=== PATIENT | male | born 1965 | race Caucasian/White ===

== ENCOUNTER 2018-04-24 09:09 | Emergency (ER) | payer SELFPAY ==
--- NOTE | 2018-04-24 10:12 | ER Document Report ---
ED General - General Chief Complaint: High Blood Pressure Stated Complaint: BLOOD PRESSURE ISSUES Time Seen by Provider: 04/24/18 10:05 Notes: Chief complaint: Elevated blood pressure History of complain:( obtained from----patient) 52 years old male went to the methadone clinic they checked his blood pressure it was close to 200 therefore they were concerned and sent him over to the ED. He had a history of hypertension was taking 10 mg of lisinopril, which he has stopped taking it for the last several months. No reason. Currently denies any chest pain shortness of breath headache focal weakness numbness tingling sensation. Onset: Gradual Duration: Long-standing Severity: Mild to moderate Quality: Dull Context: Noncompliant Exacerbating factor and relieving factors: Excitement REVIEW OF SYSTEMS: CONSTITUTIONAL : Denies fever, chills, or sweats. Denies recent illness. EENT: Denies eye, ear, throat, or mouth pain or symptoms. Denies nasal or sinus congestion or discharge. Denies throat, tongue, or mouth swelling or difficulty swallowing. CARDIOVASCULAR: Denies chest pain. Denies palpitations or racing or irregular heart beat. Denies ankle edema. RESPIRATORY: Denies cough, cold, or chest congestion. Denies shortness of breath, difficulty breathing, or wheezing. GASTROINTESTINAL: Denies distention. Denies nausea, vomiting, or diarrhea. Denies blood in vomitus, stools, or per rectum. Denies black, tarry stools. Denies constipation. GENITOURINARY: Denies difficulty urinating, painful urination, burning, frequency, blood in urine, or discharge. FEMALE GENITOURINARY: Denies vaginal bleeding, heavy or abnormal periods, irregular periods. Denies vaginal discharge or odor. MUSCULOSKELETAL: Denies back or neck pain or stiffness. Denies joint pain or swelling. SKIN: Denies rash, lesions or sores. HEMATOLOGIC : Denies easy bruising or bleeding. LYMPHATIC: Denies swollen, enlarged glands. NEUROLOGICAL: Denies confusion or altered mental status. Denies passing out or loss of consciousness. Denies dizziness or lightheadedness. Denies headache. Denies weakness or paralysis or loss of use of either side. Denies problems with gait or speech. Denies sensory loss, numbness, or tingling. Denies seizures. PSYCHIATRIC: Denies anxiety or stress. Denies depression, suicidal ideation, or homicidal ideation. ALL OTHER SYSTEMS REVIEWED AND NEGATIVE. PHYSICAL EXAMINATION: GENERAL: Well-appearing, well-nourished and in no acute distress. HEAD: Atraumatic, normocephalic. EYES: Pupils equal round and reactive to light, extraocular movements intact, conjunctiva are normal. ENT: Nares patent, oropharynx clear without exudates. Moist mucous membranes. NECK: Normal range of motion, supple without lymphadenopathy LUNGS: Breath sounds clear to auscultation bilaterally and equal. No wheezes rales or rhonchi. HEART: Regular rate and rhythm without murmurs ABDOMEN: Soft, nontender, nondistended abdomen. No guarding, no rebound. No masses appreciated. Examination of genitals-deferred Musculoskeletal: Normal range of motion, no pitting or edema. No cyanosis. NEUROLOGICAL: Cranial nerves grossly intact. Normal speech, normal gait. Normal sensory, motor exams PSYCH: Normal mood, normal affect. SKIN: Warm, Dry, normal turgor, no rashes or lesions noted. Dictation was performed using [employer] voice recognition software TRAVEL OUTSIDE OF THE [place] IN LAST 30 DAYS: No - HPI Notes: Dictated - Related Data Allergies/Adverse Reactions: Beef Containing Products Allergy (Verified 10/04/16 18:59) Past Medical History - Social History Smoking Status: Current Every Day Smoker Cigarette use (# per day): No Chew tobacco use (# tins/day): No Frequency of alcohol use: Occasional Drug Abuse: Other Lives with: Family Family History: Reviewed & Not Pertinent - Past Medical History Cardiac Medical History: Reports: Hx Hypertension Skin Medical History: Reports Hx MRSA Infectious Medical History: Reports: Hx MRSA - Patient has had multiple surgeries did to the MRSA Past Surgical History: Reports: Hx Orthopedic Surgery - rt [place] back and neck , Other - fournieres gangrene, wound surgery - Immunizations Hx Diphtheria, Pertussis, Tetanus Vaccination: Yes Review of Systems - Review of Systems Notes: Dictated Physical Exam - Vital signs Vitals: Temp Pulse Resp BP Pulse Ox 98.7 F 62 18 176/94 H 94 04/24/18 09:13 04/24/18 09:13 04/24/18 09:13 04/24/18 09:13 04/24/18 09:13 - Notes Notes: Dictated Course - Re-evaluation Re-evalutation: 04/24/18 10:10 He was explained that it is important to take his medications, low-salt diet explained. 04/24/18 10:10 I asked to monitor his blood pressure regularly morning and evening at home - Vital Signs Vital signs: Temp Pulse Resp BP Pulse Ox 98.7 F 62 18 176/94 H 94 04/24/18 09:13 04/24/18 09:13 04/24/18 09:13 04/24/18 09:13 04/24/18 09:13 Discharge - Discharge Clinical Impression: Hypertension Qualifiers: Hypertension type: essential hypertension Qualified Code(s): I10 - Essential ( primary) hypertension Condition: Fair Disposition: HOME, SELF-CARE Instructions: High Blood Pressure ([facility]), High Blood Pressure, Requiring Treatment ([facility]) Prescriptions: Lisinopril/Hydrochlorothiazide [Lisinopril-Hctz 10-12.5 mg Tab] 1 each PO DAILY #30 tablet
[2018-04-24 10:14] VITALS: BP 162/90
== END 2018-04-24 10:14 | disposition home or self-care (01) ==
LOC: ER 09:09
DX: I10 Essential (primary) hypertension (principal); T46.4X6A Underdosing of angiotensin-converting-enzyme inhibitors, initial encounter; Z91.128 Patient's intentional underdosing of medication regimen for other reason; Z91.14 Patient's other noncompliance with medication regimen; F17.200 Nicotine dependence, unspecified, uncomplicated
CPT/HCPCS: 99283

== ENCOUNTER 2018-12-12 16:41 | Emergency (ER) | payer OTHER ==
[2018-12-12] MEDS ORDERED: PREDNISONE 20 MG TABLET PO ONE (18:25)
[2018-12-12] MEDS ORDERED: LIDOCAINE 5% (700 MG) TRANSDERMAL ADH..PATCH TP ONE (18:26)
--- NOTE | 2018-12-12 18:28 | ER Document Report ---
HPI - HPI Patient complains to provider of: Back pain Time Seen by Provider: 12/12/18 17:34 Onset/Duration: Persistent Quality of pain: Sharp Pain Level: 5 Context: Patient presents complaining of chronic back pain from a fall in 2010. Patient reports a flareup of his back pain that is causing pain to radiate into the left lower extremity. Patient denies any urinary retention or incontinence. Patient denies any new injury. Patient denies any fever. Patient denies any history of IV drug use. Associated Symptoms: Other - Low back pain Exacerbated by: Standing, Movement, Walking Relieved by: Denies Similar symptoms previously: Yes Recently seen / treated by doctor: No - ROS ROS below otherwise negative: Yes Systems Reviewed and Negative: Yes All other systems reviewed and negative - CONSTITUTIONAL Constitutional: DENIES: Fever, Chills - NEURO Neurology: DENIES: Weakness - GASTROINTESTINAL Gastrointestinal: DENIES: Nausea - MUSCULOSKELETAL Musculoskeletal: REPORTS: Extremity pain, Back Pain - DERM Skin Color: Normal Skin Problems: None Past Medical History - General Information source: Patient - Social History Smoking Status: Current Every Day Smoker Chew tobacco use (# tins/day): No Frequency of alcohol use: Social Drug Abuse: None Occupation: Construction Family History: Reviewed & Not Pertinent Patient has suicidal ideation: No Patient has homicidal ideation: No - Past Medical History Cardiac Medical History: Reports: Hx Hypertension Renal/ Medical History: Denies: Hx Peritoneal Dialysis Musculoskeletal Medical History: Reports Other - Chronic back pain Skin Medical History: Reports Hx MRSA Infectious Medical History: Reports: Hx Hepatitis, Hx MRSA - Patient has had multiple surgeries did to the MRSA Past Surgical History: Reports: Hx Orthopedic Surgery - rt shoulder back and neck, Other - fournieres gangrene, wound surgery - Immunizations Hx Diphtheria, Pertussis, Tetanus Vaccination: Yes Vertical Provider Document - CONSTITUTIONAL Agree With Documented VS: Yes Exam Limitations: No Limitations General Appearance: WD/WN, No Apparent Distress Notes: PHYSICAL EXAMINATION: GENERAL: Well-appearing, well-nourished and in no acute distress. HEAD: Atraumatic, normocephalic. EYES: sclera clear, anicteric, conjunctiva are normal. ENT: nares patent, Moist mucous membranes. NECK: Normal range of motion, supple no lymphadenopathy LUNGS: respirations unlabored HEART: Regular rate and rhythm without murmurs EXTREMITIES: Normal range of motion, no pitting or edema. No cyanosis. Gait normal, pt ambulates without difficulty BACK: Left lower lumbar paraspinal tenderness, lower lumbar midline tenderness, no deformities or step-offs. No CVA tenderness. NEUROLOGICAL: Cranial nerves grossly intact. Normal speech, normal gait. No saddle anesthesia. PSYCH: Normal mood, normal affect. SKIN: Warm, Dry, normal turgor, no rashes or lesions noted. - INFECTION CONTROL TRAVEL OUTSIDE OF THE [place] IN LAST 30 DAYS: No Course - Re-evaluation Re-evalutation: 12/12/18 18:26 The patient presents with low back pain without signs of spinal cord compression, cauda equina syndrome, infection, aneurysm, or other serious etiology. The patient is neurologically intact. Given the extremely risk of these diagnoses further testing and evaluation for these possibilities does not appear to be indicated at this time. Patient has been instructed to return if the symptoms worsen or change in any way. - Vital Signs Vital signs: Temp Pulse Resp BP Pulse Ox 98.7 F 66 16 166/100 H 98 12/12/18 17:10 12/12/18 17:10 12/12/18 17:10 12/12/18 17:10 12/12/18 17:10 Discharge - Discharge Clinical Impression: Chronic back pain Qualifiers: Back pain location: low back pain Back pain laterality: unspecified Sciatica presence: with sciatica Sciatica laterality: sciatica of left side Qualified Code(s): M54.42 - Lumbago with sciatica, left side Sciatica Qualifiers: Laterality: left Qualified Code(s): M54.32 - Sciatica, left side Hypertension Qualifiers: Hypertension type: unspecified Qualified Code(s): I10 - Essential (primary) hypertension Condition: Stable Disposition: HOME, SELF-CARE Instructions: Ice Packs ([facility]), Low Back Pain ([facility]), Muscle Relaxers ([facility]), Sciatica ([facility]) Additional Instructions: Return immediately for any new or worsening symptoms Followup with your primary care provider, call tomorrow to make a followup appointment Prescriptions: Cyclobenzaprine HCl [Flexeril 10 Mg Tablet] 10 mg PO TID #15 tablet Diclofenac Epolamine [Flector] 1 each TP BID PRN #10 adh..patch PRN Reason: RX: Lisinopril [Zestril] 10 mg PO DAILY #30 tablet RX: Prednisone [Deltasone 20 mg Tablet] 3 tab PO DAILY 4 Days tablet Forms: Smoking Cessation Education, Return to Work Referrals: [facility] [Provider Group] - Follow up as needed
[2018-12-12 19:07] VITALS: BP 159/88
== END 2018-12-12 19:08 | disposition home or self-care (01) ==
LOC: ER 16:41
DX: M54.42 Lumbago with sciatica, left side (principal); F17.200 Nicotine dependence, unspecified, uncomplicated; I10 Essential (primary) hypertension; Z86.14 Personal history of Methicillin resistant Staphylococcus aureus infection
CPT/HCPCS: 99283; J7512

== ENCOUNTER 2020-03-14 17:02 | Emergency (ER) | payer SELFPAY ==
[2020-03-14] MEDS ORDERED: METHYLPREDNISOLONE INJ 125 MG/2 ML SDV IV ONE (17:12)
[2020-03-14] MEDS ORDERED: FAMOTIDINE INJ/PF 20 MG/2 ML SDV IV ONE (17:12)
[2020-03-14] MEDS ORDERED: DIPHENHYDRAMINE HCL 50 MG/ML VIAL IV ONE ×2 (17:12→19:38)
--- NOTE | 2020-03-14 17:45 | ER Document Report ---
ED General - General Chief Complaint: Rash Stated Complaint: RASH Time Seen by Provider: 03/14/20 17:11 Notes: CHIEF COMPLAINT: Allergic reaction HPI: 54-year-old male who has an allergy to beef containing products presenting for evaluation of a generalized allergic reaction. Patient states that he ate 2 hamburgers from [employer] and believes there may have been some cross- contamination. Patient broke out in a slight rash earlier today, took 2 Benadryl and it did somewhat improve. They did call EMS who evaluated the patient apparently and told him if he got worse to come to the hospital. Patient states that over the last 2 hours he has had a progressive generalized hive-like rash as well as some sensation of soreness in the throat. Denies voice change. Denies shortness of breath. Denies fever. ROS: See HPI - all other systems were reviewed and are otherwise negative Constitutional: no fever Eyes: no drainage, no blurred vision ENT: no runny nose, + sore throat Cardiovascular: no chest pain Resp: no SOB, no cough GI: no vomiting, no diarrhea, no abdominal pain : no dysuria Integumentary: + rash Allergy: + hives Musculoskeletal: no extremity pain or swelling Neurological: no numbness/tingling, no weakness MEDICATIONS: I agree with the patient medications as charted by the RN. ALLERGIES: I agree with the allergies as charted by the RN. PAST MEDICAL HISTORY/PAST SURGICAL HISTORY: Reviewed and agree as charted by RN. SOCIAL HISTORY: Reviewed and agree as charted by RN. FAMILY HISTORY: No significant familial comorbid conditions directly related to patient complaint EXAM: Reviewed vital signs as charted by RN. CONSTITUTIONAL: Alert and oriented and responds appropriately to questions. Well-appearing; well-nourished moderate distress secondary to itching HEAD: Normocephalic; atraumatic EYES: PERRL; Conjunctivae clear, sclerae non-icteric ENT: normal nose; no rhinorrhea; moist mucous membranes; pharynx without lesions noted, trace uvula edema without deviation. no tonsillar hypertrophy, phonation normal. No angioedema or tongue swelling NECK: Supple without meningismus; non-tender; no cervical lymphadenopathy, no masses. No stridor CARD: RRR; no murmurs, no clicks, no rubs, no gallops; symmetric distal pulses RESP: Normal chest excursion without splinting or tachypnea; breath sounds clear and equal bilaterally; no wheezes, no rhonchi, no rales, pulse oximetry 99% on room air not hypoxic ABD/GI: Normal bowel sounds; non-distended; soft, non-tender, no rebound, no guarding; no palpable organomegaly or masses. BACK: The back appears normal and is non-tender to palpation, there is no CVA tenderness EXT: Normal ROM in all joints; non-tender to palpation; no cyanosis, no effusions, no edema SKIN: Normal color for age and race; warm; dry; good turgor; patient with generalized urticaria anterior and posterior torso as well as upper extremities and lower extremities NEURO: Moves all extremities equally; Motor and sensory function intact PSYCH: The patient's mood and manner are appropriate. Grooming and personal hygiene are appropriate. MDM: 54-year-old male with generalized urticaria. Mild edema of the uvula. Phonation is normal no stridor no wheezing. Will give steroids, antihistamines, monitor for improvement TRAVEL OUTSIDE OF THE [place] IN LAST 30 DAYS: No - Related Data Allergies/Adverse Reactions: Beef Containing Products Allergy (Verified 12/12/18 16:50) Home Medications: centrum silver MV, lisinopril, elderberry Past Medical History - Social History Smoking Status: Current Every Day Smoker Chew tobacco use (# tins/day): No Drug Abuse: None Family History: Reviewed & Not Pertinent Patient has suicidal ideation: No Patient has homicidal ideation: No - Past Medical History Cardiac Medical History: Reports: Hx Hypertension Renal/ Medical History: Denies: Hx Peritoneal Dialysis GI Medical History: Reports: Hx Hepatitis Skin Medical History: Reports Hx MRSA Infectious Medical History: Reports: Hx Hepatitis, Hx MRSA - Patient has had multiple surgeries did to the MRSA Past Surgical History: Reports: Hx Orthopedic Surgery - rt shoulder back and neck, Other - fournieres gangrene, wound surgery - Immunizations Hx Diphtheria, Pertussis, Tetanus Vaccination: Yes Physical Exam - Vital signs Vitals: Pulse Ox 98 03/14/20 17:02 Course - Re-evaluation Re-evalutation: 03/14/20 17:58 Patient still with urticaria but they have paled well and they are improving significantly. Lungs are clear to auscultation no angioedema at this time uvula edema has improved. Patient requesting to drink we will continue to observe 03/14/20 19:39 Patient still with some urticaria over the torso axillary region and arms but much improved. No angioedema. Phonation is normal. Lung sounds are clear to auscultation. Will give additional dose of Benadryl here prior to discharge. Patient will be prescribed steroids, EpiPen, Pepcid, to take Benadryl 3-4 times daily 50 mg. Follow-up PCP - Vital Signs Vital signs: Temp Pulse Resp BP Pulse Ox 97.6 F 97 17 106/72 94 03/14/20 17:03 03/14/20 17:03 03/14/20 18:01 03/14/20 18:01 03/14/20 18:01 Discharge - Discharge Clinical Impression: Allergic reaction Qualifiers: Encounter type: initial encounter Qualified Code(s): T78.40XA - Allergy, unspecified, initial encounter Condition: Stable Disposition: HOME, SELF-CARE Instructions: Acute Allergic Reaction ([facility]) Additional Instructions: 1. take the medications as prescribed 2. take Benadryl 25-50 mg three times daily for 3-4 days 3. follow up recheck with PCP for further evaluation and treatment, call for appt. 4. return for any shortness of breath or worsening rash or condition 5. Use the Epipen if needed for any shortness of breath, difficulty swallowing or worsening condition to buy time to get to an ER or call EMS for further treatment and evaluation Prescriptions: Prednisone [Deltasone 20 mg Tablet] 2 tab PO DAILY 7 Days #14 tablet Epinephrine [Epipen 2-Norbert] 0.3 mg IM ONCE PRN #1 packet PRN Reason: Famotidine [Pepcid 20 mg Tablet] 20 mg PO BID #14 tablet Referrals: CHANEL PARRY MD [ACTIVE STAFF] - Follow up as needed
[2020-03-14 20:25] VITALS: BP 132/98
== END 2020-03-14 20:25 | disposition home or self-care (01) ==
LOC: ER 17:02
DX: T78.40XA Allergy, unspecified, initial encounter (principal); X58.XXXA Exposure to other specified factors, initial encounter; F17.200 Nicotine dependence, unspecified, uncomplicated; I10 Essential (primary) hypertension; Z86.14 Personal history of Methicillin resistant Staphylococcus aureus infection
CPT/HCPCS: 96376; 99282; 96374; 96375; J1200; J2930; S0028

== ENCOUNTER 2020-05-21 05:37 | Emergency (ER) | payer SELFPAY ==
[2020-05-21 05:52] VITALS: BP 134/92
== END 2020-05-21 06:32 | disposition left against medical advice (07) ==
LOC: ER 05:37
DX: Z53.21 Procedure and treatment not carried out due to patient leaving prior to being seen by health care provider (principal); T78.40XA Allergy, unspecified, initial encounter

== ENCOUNTER 2020-05-23 00:06 | Emergency (ER) | payer SELFPAY ==
[2020-05-23 01:25] VITALS: BP 92/59
== END 2020-05-23 01:15 | disposition left against medical advice (07) ==
LOC: ER 00:06
DX: Z53.21 Procedure and treatment not carried out due to patient leaving prior to being seen by health care provider (principal); M79.89 Other specified soft tissue disorders
CPT/HCPCS: 99281

== ENCOUNTER 2020-09-29 16:30 | Emergency (ER) | payer SELFPAY ==
--- NOTE | 2020-09-29 17:24 | ER Document Report ---
ED Medical Screen (RME) - General Chief Complaint: Leg Swelling Stated Complaint: LEG SWELLING/FOOT PAIN Time Seen by Provider: 09/29/20 17:18 Mode of Arrival: Wheelchair Information source: Patient Notes: 55-year-old male presented to ED for swelling to both legs for 1 to 2 months as well as short of breath. He states he still goes to work but is getting more more hard to work or walk due to the pain and swelling in his feet and legs. 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 He states he has been on the methadone program since then. Patient is alert oriented respirations regular nonlabored. He is able to walk but with a limp. I have greeted and performed a rapid initial assessment of this patient. A comprehensive ED assessment and evaluation of the patient, analysis of test results and completion of medical decision making process will be conducted by an additional ED providers. TRAVEL OUTSIDE OF THE [place] IN LAST 30 DAYS: No - Related Data Allergies/Adverse Reactions: Beef Containing Products Allergy (Verified 05/23/20 00:20) Past Medical History - Past Medical History Cardiac Medical History: Reports: Hx Hypertension Renal/ Medical History: Denies: Hx Peritoneal Dialysis GI Medical History: Reports: Hx Hepatitis Skin Medical History: Reports Hx MRSA Infectious Medical History: Reports: Hx Hepatitis, Hx MRSA - Patient has had multiple surgeries did to the MRSA Past Surgical History: Reports: Hx Orthopedic Surgery - rt shoulder back and neck, Other - fournieres gangrene, wound surgery - Immunizations Hx Diphtheria, Pertussis, Tetanus Vaccination: Yes Physical Exam - Vital signs Vitals: Temp Pulse Resp BP Pulse Ox 98.0 F 67 18 143/89 H 97 09/29/20 16:42 09/29/20 16:42 09/29/20 16:42 09/29/20 16:42 09/29/20 16:42 Course - Vital Signs Vital signs: Temp Pulse Resp BP Pulse Ox 98.0 F 67 18 143/89 H 97 09/29/20 16:42 09/29/20 16:42 09/29/20 16:42 09/29/20 16:42 09/29/20 16:42
[2020-09-29 17:54] LABS: ABSOLUTE BASOPHILS # (AUTO) 0.1 10^3/uL (0.0-0.2); ABSOLUTE EOSINOPHILS # (AUTO) 0.3 10^3/uL (0.0-0.6); ABSOLUTE MONOCYTES (AUTO) 0.8 10^3/uL (0.1-1.4); ABSOLUTE NEUT (AUTO) 5.6 10^3/uL (1.7-8.2); BASOPHILS % (AUTO) 0.8 % (0-2); EOSINOPHILS % (AUTO) 3.2 % (0-6); HEMOGLOBIN 13.4 g/dL (13.5-17.0); LYMPHOCYTES % (AUTO) 23.1 % (13-45); MEAN CORPUSCULAR HEMOGLOBIN 33.6 pg (27.0-33.4); MEAN CORPUSCULAR HGB CONC 34.4 g/dL (32.0-36.0); MEAN CORPUSCULAR VOLUME 98 fl (80-97); MONOCYTES % (AUTO) 8.6 % (3-13); PLATELET COUNT 339 10^3/uL (150-450); RED BLOOD COUNT 3.99 10^6/uL (4.35-5.55); RED CELL DISTRIBUTION WIDTH 14.2 % (11.5-14.0); SEGMENTED NEUTROPHILS % (AUTO) 64.3 % (42-78); TOTAL CELLS COUNTED % (AUTO) 100 %; WHITE BLOOD COUNT 8.8 10^3/uL (4.0-10.5)
--- NOTE | 2020-09-29 18:09 | RADIOLOGY REPORT (SQ) ---
EXAM DESCRIPTION: CHEST 2 VIEWS IMAGES COMPLETED DATE/TIME: 09/29/2020 5:49 pm REASON FOR STUDY: pedal edema short of breath 1-2 months COMPARISON: None. EXAM PARAMETERS: NUMBER OF VIEWS: two views TECHNIQUE: Digital Frontal and Lateral radiographic views of the chest acquired. RADIATION DOSE: NA LIMITATIONS: none FINDINGS: LUNGS AND PLEURA: Mild chronic interstitial changes. No acute infiltrate or effusion. No mass. MEDIASTINUM AND HILAR STRUCTURES: No masses or contour abnormalities. HEART AND VASCULAR STRUCTURES: Heart normal size. No evidence for failure. BONES: No acute findings. HARDWARE: None in the chest. OTHER: No other significant finding. IMPRESSION: Mild chronic lung changes with no acute cardiopulmonary finding. TECHNICAL DOCUMENTATION: JOB ID: [id number] 2010 [employer]- All Rights Reserved Reading location - IP/workstation name: [email or web address]
[2020-09-29 18:10] LABS: APPEARANCE,URINE CLEAR; BILIRUBIN,URINE NEGATIVE (NEGATIVE); COLOR,URINE YELLOW; GLUCOSE, URINE NEGATIVE (NEGATIVE); KETONES,URINE NEGATIVE (NEGATIVE); LEUKOCYTE ESTERASE,URINE NEGATIVE (NEGATIVE); NITRITE,URINE NEGATIVE (NEGATIVE); PROTEIN,URINE NEGATIVE (NEGATIVE); URINE SPECIFIC GRAVITY 1.027; UROBILINOGEN,URINE NEGATIVE mg/dL (<2.0)
[2020-09-29 18:15] LABS: ALBUMIN 4.2 g/dL (3.5-5.0); ALCOHOL 197 mg/dL (NONE DETECTED); ALKALINE PHOSPHATASE 89 U/L (38-126); ANION GAP 9 (5-19); ASPARTATE AMINO TRANSFERASE 67 U/L (17-59); BILIRUBIN,DIRECT 0.2 mg/dL (0.0-0.4); BILIRUBIN,TOTAL 0.4 mg/dL (0.2-1.3); BLOOD UREA NITROGEN 16 mg/dL (7-20); CALCIUM 9.4 mg/dL (8.4-10.2); CARBON DIOXIDE 26 mmol/L (22-30); CHLORIDE 106 mmol/L (98-107); GLUCOSE 107 mg/dL (75-110); POTASSIUM 4.2 mmol/L (3.6-5.0); TOTAL PROTEIN 7.1 g/dL (6.3-8.2)
[2020-09-29 18:25] LABS: NT PRO BNP 240 pg/mL (<125); TROPONIN I < 0.012 ng/mL
[2020-09-29] MEDS ORDERED: KETOROLAC TROMETHAMINE 60 MG/2 ML SDV IM ONE (22:54)
--- NOTE | 2020-09-29 23:45 | ER Document Report ---
ED Extremity Problem, Lower - General Chief Complaint: Feet Swelling Stated Complaint: LEG SWELLING/FOOT PAIN Time Seen by Provider: 09/29/20 17:18 Primary Care Provider: [facility] [Outside] - Follow up in 3-5 days Mode of Arrival: Wheelchair TRAVEL OUTSIDE OF THE [place] IN LAST 30 DAYS: No - HPI Notes: Patient is a 55-year-old male who presents with bilateral foot pain. Patient states he has had symptoms off and on for several months and they come and go. He states he has pain at the bottom of his feet. Currently, there is worse pain on the left heel that feels sharp. He also has some swelling to the left leg and ankle. He intermittently has swelling to the right leg as well. Patient states he has been taking naproxen with relief. He denies any previous blood clot. No recent long car rides or plane rides. No recent surgeries. 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 Patient is denies any injuries. He does not currently have a family doctor. Denies any fevers or chills. No chest pain or shortness of breath. Patient does state that he drinks alcohol daily. - Related Data Allergies/Adverse Reactions: Beef Containing Products Allergy (Verified 09/29/20 20:18) Past Medical History - General Information source: Patient - Social History Smoking Status: Current Every Day Smoker Frequency of alcohol use: None Drug Abuse: None Family History: Reviewed & Not Pertinent - Past Medical History Cardiac Medical History: Reports: Hx Hypertension Renal/ Medical History: Denies: Hx Peritoneal Dialysis GI Medical History: Reports: Hx Hepatitis Skin Medical History: Reports Hx MRSA Infectious Medical History: Reports: Hx Hepatitis, Hx MRSA - Patient has had multiple surgeries did to the MRSA Past Surgical History: Reports: Hx Orthopedic Surgery - rt shoulder back and neck, Other - fournieres gangrene, wound surgery - Immunizations Hx Diphtheria, Pertussis, Tetanus Vaccination: Yes Review of Systems - Review of Systems Notes: CONSTITUTIONAL: No fever, fatigue or weight loss. SKIN: No rash. HENT: No congestion, ear pain, or sore throat. EYES: No recent vision problems or eye pain. ENDOCRINE: No thyroid problems. No polyuria or polydipsia. CARDIOVASCULAR: No chest pain. RESPIRATORY: No cough, shortness of breath, congestion, or wheezing. GASTROINTESTINAL: No abdominal pain, nausea, vomiting, bloody stools or diarrhea. GENITOURINARY: No dysuria. MUSCULOSKELETAL: Positive for bilateral feet pain and intermittent leg swelling. LYMPHATIC: No swollen glands. NEUROLOGIC: No seizures. No headache, focal weakness or sensory changes. HEMATOLOGIC: No unusual bruising or bleeding. PSYCHIATRIC: No depression or anxiety. Physical Exam - Vital signs Vitals: Temp Pulse Resp BP Pulse Ox 98.0 F 67 18 143/89 H 97 09/29/20 16:42 09/29/20 16:42 09/29/20 16:42 09/29/20 16:42 09/29/20 16:42 - General General appearance: Appears well Notes: VITAL SIGNS: Within normal limits. GENERAL: No acute distress, non-toxic appearance. HEAD: Normal with no signs of head trauma. EYES: EOMI, conjunctiva normal, no discharge. EARS: Hearing grossly intact. NOSE: Normal. THROAT: Oropharynx is normal. NECK: Normal range of motion, no tenderness, supple, no lymphadenopathy, No adenopathy, no JVD. CHEST: Clear breath sounds bilaterally. No wheezes, rales, or rhonchi. CARDIAC: Regular rate and rhythm. S1 and S2, without murmurs, gallops, or rubs. VASCULAR: Peripheral pulses normal and equal in all extremities. ABDOMEN: Normal and soft with no tenderness, no masses or pulsatile masses. GASTROINTESTINAL: Bowel sounds normal GENITOURINARY: Normal, No tenderness MUSCULOSKELETAL: Good range of motion of all major joints. Swelling to the left ankle. Pain to palpation of the bilateral heels. Range of motion is i ntact. Strong dorsalis pedis pulses bilaterally. No overlying skin changes or ulcers. NEUROLOGICAL: Alert and oriented x 3. No focal sensory or strength deficits. Speech normal. Follows commands appropriately. PSYCHIATRIC: Normal Affect, judgement and mood. SKIN: Normal appearance with no rashes or lesions. Course - Re-evaluation Re-evalutation: 09/30/20 02:22 Patient's lab work was reviewed. He does not appear to be in heart failure. Patient's lung sounds are clear. He does have some soft tissue swelling at the left ankle. I was unable to order Doppler ultrasounds at this time as they are not available at night. I did write him a prescription to get this done outpatient tomorrow for his bilateral legs to rule out a DVT. He states he has had the symptoms off and on for several months. His x-ray does show bone spur at the calcaneal area. He does have pain at palpation of the left heel. It is possible there could be inflammation there causing his symptoms as he does work on his feet all day. I instructed him to take anti-inflammatories. I also discharged him with a Medrol Dosepak for inflammation. He was told to elevate the legs and where compression stockings. I provided him a number for the [facility] as he does not have a PCP and states he does not have insurance. I told him to follow-up with them this week. Patient is very agreeable to the plan. It was noted that he had a elevated alcohol level on his initial lab work. However, patient has been in the ER for approximately 7 hours and is sober at this time. - Vital Signs Vital signs: Temp Pulse Resp BP Pulse Ox 97.4 F 60 18 126/80 H 96 09/30/20 01:18 09/30/20 01:18 09/30/20 01:18 09/30/20 01:18 09/30/20 01:18 - Laboratory Result Diagrams: 09/29/20 17:40 09/29/20 17:40 Laboratory results interpreted by me: 09/29/20 09/29/20 09/29/20 17:40 17:40 17:40 RBC 3.99 L Hgb 13.4 L MCV 98 H MCH 33.6 H RDW 14.2 H AST 67 H NT-Pro-B Natriuret Pep 240 H Urine Ascorbic Acid 09/29/20 17:40 RBC Hgb MCV MCH RDW AST NT-Pro-B Natriuret Pep Urine Ascorbic Acid 40 H - Diagnostic Test Radiology reviewed: Image reviewed Discharge - Discharge Clinical Impression: Leg swelling, Pain of left heel Condition: Stable Disposition: HOME, SELF-CARE Instructions: Leg Pain Nonspecific ([facility]) Additional Instructions: Please follow-up with the family doctor provided. Take Tylenol and ibuprofen for pain. Make sure you elevate the legs. You may wear compression stockings. You have been provided with outpatient ultrasound testings of your leg. Please call tomorrow for an appointment. Please return to the ER for any return of symptoms. Prescriptions: Methylprednisolone [Medrol Dosepack (4 mg/Tab) 21 Tab/Dosepak] 4 mg PO ASDIR PRN #21 [id number] PRN Reason: Forms: Follow-Up Radiology Testing Referrals: [facility] [Outside] - Follow up in 3-5 days
--- NOTE | 2020-09-30 00:13 | RADIOLOGY REPORT (SQ) ---
CLINICAL INDICATION: ankle and foot pain/swelling. . TECHNIQUE: 3 view(s) were obtained of the left ankle. COMPARISON: None. FINDINGS: No acute displaced fracture is identified of the ankle. Alignment appears anatomic. Osteoarthritis. Soft tissue swelling. IMPRESSION: No evidence of acute displaced fracture of the ankle.
--- NOTE | 2020-09-30 00:14 | RADIOLOGY REPORT (SQ) ---
CLINICAL INDICATION: ankle and foot pain/swelling. . TECHNIQUE: 3 view(s) were obtained of the left foot. COMPARISON: None. FINDINGS: No acute displaced fracture is identified of the foot. Alignment appears anatomic. Osteoarthritis. Soft tissue swelling. Anterior calcaneal spurring. IMPRESSION: No evidence of acute displaced fracture of the foot.
[2020-09-30 01:28] VITALS: BP 126/80
== END 2020-09-30 01:28 | disposition home or self-care (01) ==
LOC: ER 16:30
DX: M79.672 Pain in left foot (principal); M79.671 Pain in right foot; R22.43 Localized swelling, mass and lump, lower limb, bilateral; F17.200 Nicotine dependence, unspecified, uncomplicated; I10 Essential (primary) hypertension; Z86.14 Personal history of Methicillin resistant Staphylococcus aureus infection
CPT/HCPCS: 99284; 96372; 36415; 80307; 83690; 85025; 80053; 81001; 84484; 83880; 73610; 71046; 73630; J1885

== ENCOUNTER → 2020-09-30 | Outpatient (CLI) | payer SELFPAY ==
--- NOTE | 2020-09-30 16:07 | RADIOLOGY REPORT (SQ) ---
EXAM DESCRIPTION: VENOUS BILATERAL LOWER IMAGES COMPLETED DATE/TIME: 09/30/2020 2:04 pm REASON FOR STUDY: BLE SWELLING COMPARISON: None. TECHNIQUE: Dynamic and static hamm scale and color images acquired of both lower extremity venous sy stems. Selected spectral images acquired with additional compression and augmentation maneuvers. Imag es stored on PACS. LIMITATIONS: None. FINDINGS: RIGHT LEG COMMON FEMORAL AND FEMORAL: Normal phasicity, compression and augmentation. No visualized echogenic m aterial on hamm scale. No defects on color images. POPLITEAL: Normal compression and augmentation. No visualized echogenic material on hamm scale. No de fects on color images. CALF VESSELS: Normal compression and augmentation. No visualized echogenic material on hamm scale. No defects on color image. GSV AND SSV: Normal compression. No visualized echogenic material on hamm scale. No defects on color images. ANY DEEP VENOUS INSUFFICIENCY: Not evaluated. ANY EVIDENCE OF POPLITEAL CYST: No. OTHER: No other significant finding. LEFT LEG COMMON FEMORAL AND FEMORAL: Normal phasicity, compression and augmentation. No visualized echogenic m aterial on hamm scale. No defects on color images. POPLITEAL: Normal compression and augmentation. No visualized echogenic material on hamm scale. No de fects on color images. CALF VESSELS: Normal compression and augmentation. No visualized echogenic material on hamm scale. No defects on color images. GSV AND SSV: Normal compression. No visualized echogenic material on hamm scale. No defects on color images. ANY DEEP VENOUS INSUFFICIENCY: Not evaluated. ANY EVIDENCE POPLITEAL CYST: No. OTHER: No other significant finding. IMPRESSION: NO EVIDENCE DVT OR SVT IN EITHER LEG. TECHNICAL DOCUMENTATION: JOB ID: [id number] [employer]- All Rights Reserved Reading location - IP/workstation name: [email or web address]
== END ==
LOC: SP 12:50
PROVIDERS: ATTEND Emergency Medicine
DX: M79.89 Other specified soft tissue disorders (principal)
CPT/HCPCS: 93970

== ENCOUNTER 2020-11-20 11:22 | Emergency (ER) | payer SELFPAY ==
[2020-11-20] MEDS ORDERED: LISINOPRIL 10 MG TABLET PO ONE (11:52)
--- NOTE | 2020-11-20 11:54 | ER Document Report ---
ED Medical Screen (RME) - General Chief Complaint: Hand Pain Stated Complaint: THUMB PAIN/SWELLING Time Seen by Provider: 11/20/20 11:50 TRAVEL OUTSIDE OF THE [place] IN LAST 30 DAYS: No - HPI Notes: 11/20/20 11:52 55-year-old male presents to ED for evaluation of cracking and irritation to the right thumb. Patient reports it has been infected for roughly 6 weeks. States that he has been trying to the area clean and dry. Patient has a history of his gangrene as well as MRSA in the past. Patient notes that he has needed IV antibiotics in the past and has had surgical management. He reports increased pain with range of motion of the hand. Denies paresthesias. Denies trauma or injury. Patient does work with concrete. Has not currently taken antibiotics for management. - Related Data Allergies/Adverse Reactions: Beef Containing Products Allergy (Verified 11/20/20 11:51) Past Medical History - Past Medical History Cardiac Medical History: Reports: Hx Hypertension Renal/ Medical History: Denies: Hx Peritoneal Dialysis GI Medical History: Reports: Hx Hepatitis Skin Medical History: Reports Hx MRSA Infectious Medical History: Reports: Hx Hepatitis, Hx MRSA - Patient has had multiple surgeries did to the MRSA Past Surgical History: Reports: Hx Orthopedic Surgery - rt shoulder back and neck, Other - fournieres gangrene, wound surgery - Immunizations Hx Diphtheria, Pertussis, Tetanus Vaccination: Yes Physical Exam - Vital signs Vitals: Temp Pulse Resp BP Pulse Ox 97.5 F 62 20 200/96 H 97 11/20/20 11:25 11/20/20 11:25 11/20/20 11:25 11/20/20 11:25 11/20/20 11:25 General: No acute distress. Alert and oriented x3. Skin: No jaundice, pallor, or rashes. Warm and dry. Musculoskeletal: Right Hand: Skin irritation along the distal aspect of the thumb along the nailbed. Minor erythema with swelling. No ecchymosis, deformities or rashes. Strength and sensation is intact. No tenderness to palpation. No tenderness about anatomical snuffbox. Digits 1-5 with good flexion and extension about MCP, PIP and DIP joints. Brisk capillary refill. Radial pulses 2+ bilaterally. Wrist nontender with good range of motion. Neuro: GCS 15. Course - Vital Signs Vital signs: Temp Pulse Resp BP Pulse Ox 97.5 F 62 20 200/96 H 97 11/20/20 11:25 11/20/20 11:25 11/20/20 11:25 11/20/20 11:25 11/20/20 11:25
[2020-11-20] MEDS ORDERED: CLINDAMYCIN PHOSPHATE 750 MG in DEXTROSE 5%-WATER 100 ML IV SCH (12:00)
--- NOTE | 2020-11-20 12:25 | RADIOLOGY REPORT (SQ) ---
EXAM DESCRIPTION: HAND RIGHT 3 VIEWS IMAGES COMPLETED DATE/TIME: 11/20/2020 11:02 am REASON FOR STUDY: osteomyelitis. COMPARISON: None. EXAM PARAMETERS: NUMBER OF VIEWS: Three views. TECHNIQUE: AP, lateral and oblique radiographic images acquired of the right hand. LIMITATIONS: None. FINDINGS: MINERALIZATION: Normal. BONES: No acute fracture or dislocation. No worrisome bone lesions. JOINTS: No effusions. SOFT TISSUES: No soft tissue swelling. No foreign body. OTHER: No other significant finding. IMPRESSION: No radiographic abnormality of the right hand. TECHNICAL DOCUMENTATION: JOB ID: [id number] 2010 [employer]- All Rights Reserved Reading location - IP/workstation name: [email or web address]
[2020-11-20 12:40] LABS: ABSOLUTE BASOPHILS # (AUTO) 0.1 10^3/uL (0.0-0.2); ABSOLUTE EOSINOPHILS # (AUTO) 0.2 10^3/uL (0.0-0.6); ABSOLUTE LYMPHOCYTES (AUTO) 2.3 10^3/uL (0.5-4.7); ABSOLUTE MONOCYTES (AUTO) 0.8 10^3/uL (0.1-1.4); ABSOLUTE NEUT (AUTO) 3.6 10^3/uL (1.7-8.2); BASOPHILS % (AUTO) 0.9 % (0-2); EOSINOPHILS % (AUTO) 2.9 % (0-6); HEMATOCRIT 43.9 % (37.9-51.0); HEMOGLOBIN 14.5 g/dL (13.5-17.0); LYMPHOCYTES % (AUTO) 33.3 % (13-45); MEAN CORPUSCULAR HEMOGLOBIN 32.1 pg (27.0-33.4); MEAN CORPUSCULAR HGB CONC 33.1 g/dL (32.0-36.0); MEAN CORPUSCULAR VOLUME 97 fl (80-97); MONOCYTES % (AUTO) 11.9 % (3-13); PLATELET COUNT 326 10^3/uL (150-450); RED BLOOD COUNT 4.52 10^6/uL (4.35-5.55); RED CELL DISTRIBUTION WIDTH 14.4 % (11.5-14.0); TOTAL CELLS COUNTED % (AUTO) 100 %
[2020-11-20 13:02] LABS: ALBUMIN 4.4 g/dL (3.5-5.0); ALKALINE PHOSPHATASE 96 U/L (38-126); ANION GAP 6 (5-19); ASPARTATE AMINO TRANSFERASE 76 U/L (17-59); BILIRUBIN,DIRECT 0.2 mg/dL (0.0-0.4); BILIRUBIN,TOTAL 0.5 mg/dL (0.2-1.3); BLOOD UREA NITROGEN 23 mg/dL (7-20); C-REACTIVE PROTEIN 11.4 mg/L (<10.0); CALCIUM 9.6 mg/dL (8.4-10.2); CARBON DIOXIDE 31 mmol/L (22-30); CHLORIDE 101 mmol/L (98-107); GLUCOSE 104 mg/dL (75-110); POTASSIUM 4.7 mmol/L (3.6-5.0); TOTAL PROTEIN 7.7 g/dL (6.3-8.2)
[2020-11-20] MEDS ORDERED: CLINDAMYCIN HCL 150 MG CAPSULE PO ONE (13:14)
[2020-11-20 13:18] LABS: ERYTHROCYTE SEDIMENTATION RATE 11 mm/hr (0-20)
[2020-11-20] MEDS ORDERED: KETOROLAC TROMETHAMINE 60 MG/2 ML SDV IM ONE (13:21)
--- NOTE | 2020-11-20 14:09 | ER Document Report ---
Entered by CASANDRA LAMAS SCRIBE 11/20/20 1239 Acting as scribe for:NICHOLE GOYAL MD ED Hand/Wrist Injury - General Chief Complaint: Hand Pain Stated Complaint: THUMB PAIN/SWELLING Time Seen by Provider: 11/20/20 11:50 Mode of Arrival: Ambulatory Information source: Patient Notes: This 55 year old male patient on methadone presents to the emergency department today with complaints of right thumb pain for the last six weeks. 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 He reports he has a history of MRSA and he is concerned because he has had increasing pain in his right thumb although there is no redness or streaking to suggest infection. TRAVEL OUTSIDE OF THE [place] IN LAST 30 DAYS: No - Related Data Allergies/Adverse Reactions: Beef Containing Products Allergy (Verified 11/20/20 11:51) Past Medical History - General Information source: Patient - Social History Smoking Status: Current Every Day Smoker Cigarette use (# per day): Yes Chew tobacco use (# tins/day): No Frequency of alcohol use: Occasional Drug Abuse: None Lives with: Family Family History: Reviewed & Not Pertinent Patient has homicidal ideation: No - Past Medical History Cardiac Medical History: Reports: Hx Hypertension GI Medical History: Reports: Hx Hepatitis Skin Medical History: Reports Hx MRSA Infectious Medical History: Reports: Hx Hepatitis, Hx MRSA - Patient has had multiple surgeries did to the MRSA Past Surgical History: Reports: Hx Orthopedic Surgery - rt shoulder back and neck, Other - fournieres gangrene, wound surgery - Immunizations Hx Diphtheria, Pertussis, Tetanus Vaccination: Yes Review of Systems - Review of Systems Constitutional: No symptoms reported EENT: No symptoms reported Cardiovascular: No symptoms reported Respiratory: No symptoms reported Gastrointestinal: No symptoms reported Genitourinary: No symptoms reported Male Genitourinary: No symptoms reported Musculoskeletal: No symptoms reported Skin: See HPI, Dryness, Other - cracking of skin of right thumb Hematologic/Lymphatic: No symptoms reported Neurological/Psychological: No symptoms reported -: Yes All other systems reviewed and negative Physical Exam - Vital signs Vitals: Temp Pulse Resp BP Pulse Ox 97.5 F 62 20 200/96 H 97 11/20/20 11:25 11/20/20 11:25 11/20/20 11:25 11/20/20 11:25 11/20/20 11:25 - Notes Notes: Physical Exam: General: Alert, appears well. HEENT: Normocephalic. Atraumatic. PERRL. Extraocular movements intact. Oropharynx clear. Neck: Supple. Non-tender. Respiratory: No respiratory distress. Clear and equal breath sounds bilaterally. Cardiovascular: Regular rate and rhythm. Abdominal: Normal Inspection. Non-tender. No distension. Normal Bowel Sounds. Back: No gross abnormalities. Extremities: Moves all four extremities. Upper extremities: Normal inspection. Normal ROM. Lower extremities: Right thumb has dry cracked skin at the tip of the finger without sign of infection. Neurological: Normal cognition. AAOx4. Normal speech. Psychological: Normal affect. Normal Mood. Skin: Warm. Dry. Normal color. Course - Re-evaluation Re-evalutation: 11/20/20 14:01 Patient resting comfortably in room. Patient has received p.o. clindamycin and IM ketorolac for his pain. Patient reports that he has high blood pressure and has been out of his medications for period of time reports that he takes lisinopril 10 mg once a day. Plan will be to provide patient with a prescription for 30-day dose of lisinopril 10 mg 1 tablet daily. - Vital Signs Vital signs: Temp Pulse Resp BP Pulse Ox 97.5 F 62 20 194/105 H 97 11/20/20 11:25 11/20/20 11:25 11/20/20 11:25 11/20/20 11:52 11/20/20 11:25 11/20/20 14:02 Vital signs shows systolic diastolic hypertension 194/105. Patient reports that he has not taken his blood pressure pills because he is run out of them. - Laboratory Results Result Diagrams: 11/20/20 12:10 11/20/20 12:10 Laboratory Results Interpreted: 11/20/20 11/20/20 12:10 12:10 RDW 14.4 H Carbon Dioxide 31 H BUN 23 H AST 76 H C-Reactive Protein 11.4 H Laboratories unremarkable does have an elevated C-reactive protein BUN is 23 CO2 31 AST 76 there are no critical lab values on this report. Critical Laboratory Results Reviewed: No Critical Results - Radiology Results Radiology Results Interpreted: 11/20/20 14:03 Hand X-Ray 11/20/20 11:50 IMPRESSION: No radiographic abnormality of the right hand. X-ray of hand right hand shows no radiographic abnormality no soft tissue foreign body or gas gangrene noted in skin subcu tissue. Critical Radiology Results Reviewed: No Critical Results Discharge - Discharge Clinical Impression: Cellulitis of right hand, Hypertension Condition: Stable Disposition: HOME, SELF-CARE Additional Instructions: Cellulitis You have an infection of your skin and underlying soft tissues called cellulitis. This is due to bacteria, which can enter through any break in the skin, or even through an irritated hair follicle. Untreated, cellulitis will usually worsen. Antibiotics are required. Usually, warm packs or warm soaks, and elevation of the infected area are recommended. You should start getting better within 24 to 36 hours. Most infections respond quickly to the right medication. Follow-up care is important, however, to check for abscess (boil) formation, unsuspected foreign body, or resistant infection. If you develop fever, chills, or if the area of infection is becoming rapidly more swollen or painful, call the doctor at once. Prescriptions: Clindamycin HCl 300 mg PO QID #40 capsule Lisinopril [Prinivil 10 mg Tablet] 10 mg PO DAILY #30 tablet Forms: Elevated Blood Pressure I personally performed the services described in the documentation, reviewed and edited the documentation which was dictated to the scribe in my presence, and it accurately records my words and actions.
[2020-11-20 14:23] VITALS: BP 179/89
== END 2020-11-20 14:15 | disposition home or self-care (01) ==
LOC: ER 11:22
DX: L03.113 Cellulitis of right upper limb (principal); M79.644 Pain in right finger(s); R23.4 Changes in skin texture; I10 Essential (primary) hypertension; F17.210 Nicotine dependence, cigarettes, uncomplicated; Z79.891 Long term (current) use of opiate analgesic; Z86.14 Personal history of Methicillin resistant Staphylococcus aureus infection; Z91.018 Allergy to other foods
CPT/HCPCS: 99284; 96372; 36415; 87040; 83605; 85025; 85652; 86140; 80053; 73130; J1885

== ENCOUNTER 2020-11-29 08:26 | Emergency (ER) | payer SELFPAY ==
[2020-11-29 08:33] VITALS: BP 168/96
--- NOTE | 2020-11-29 10:33 | ER Document Report ---
ED Medical Screen (RME) - General Chief Complaint: Hand Pain Stated Complaint: THUMB PAIN TRAVEL OUTSIDE OF THE [place] IN LAST 30 DAYS: No - HPI Notes: 11/29/20 10:27 Rapid Medical Exam HPI: Pt c/o right thumb infection. was treated on 11/20 w/ clindamycin. Pt is on last day of clinda and it still has not resolved. says infection is no longer spreading down the thumb but its focused at the tip and is extremely painful. has a hx of mrsa. Physical Exam: GENERAL: Well-appearing, well-nourished and in no acute distress. HEAD: Atraumatic, normocephalic. ENT: Moist mucous membranes. RESP: Respirations even and unlabored CV- Regular rate. NEURO: No focal neurological deficits. Moves all extremities spontaneously and on command. msk- right thumb- focal erythema to the distal tip of thumb. healing wound to distal tip. no drainage. no significant swelling. from of thumb. My involvement in this patients care was limited to a rapid initial assessment. A comprehensive ED assessment and evaluation of the patient, analysis of test results, treatment, and completion of the medical decision making process will be performed by other ER providers. 11/29/20 10:31 - Related Data Allergies/Adverse Reactions: Beef Containing Products Allergy (Verified 11/29/20 08:43) Home Medications: lisinopril Past Medical History - Social History Chew tobacco use (# tins/day): No Frequency of alcohol use: Occasional Drug Abuse: None - Past Medical History Cardiac Medical History: Reports: Hx Hypertension Renal/ Medical History: Denies: Hx Peritoneal Dialysis GI Medical History: Reports: Hx Hepatitis Skin Medical History: Reports Hx MRSA Infectious Medical History: Reports: Hx Hepatitis, Hx MRSA - Patient has had multiple surgeries did to the MRSA Past Surgical History: Reports: Hx Orthopedic Surgery - rt shoulder back and neck, Other - fournieres gangrene, wound surgery - Immunizations Hx Diphtheria, Pertussis, Tetanus Vaccination: Yes Physical Exam - Vital signs Vitals: Temp Pulse Resp BP Pulse Ox 98.0 F 74 18 168/96 H 97 11/29/20 08:31 11/29/20 08:31 11/29/20 08:31 11/29/20 08:31 11/29/20 08:31 Course - Vital Signs Vital signs: Temp Pulse Resp BP Pulse Ox 98.0 F 74 18 168/96 H 97 11/29/20 08:31 11/29/20 08:31 11/29/20 08:31 11/29/20 08:31 11/29/20 08:31
--- NOTE | 2020-11-29 10:41 | ER Document Report ---
ED General - General Chief Complaint: Hand Pain Stated Complaint: THUMB PAIN TRAVEL OUTSIDE OF THE [place] IN LAST 30 DAYS: No - HPI Notes: Chief Complaint: Historian: History obtained from patient HPI: This is a 55yo male c/o right thumb infection X 8 weeks. was treated in ER on 11/20 w/ clindamycin prescription. pt says symptom are improving but he is out of his clindamycin today and it has not completely healed. denies drainage from wound or bleeding. no fever/chills. denies sensory or rom deficit. hx of mrsa. ROS: Constitutional: no fevers. HEENT: no [place], sore throat, or vision changes. CV: no chest pain or palpitations. Resp: no cough or SOB. GI: no abdominal pain, or n/v/d. : no dysuria, hematuria, or incont. MSK: righ tthumb infeciton Skin: no rashes or itching. Neuro: no seizures, weakness, numbness, or confusion. Hematological: no ecchymosis or easy bleeding. Endocrine: no polyuria/polydipsia, no heat/cold intolerance. Psych: no SI/HI, AH/VH or memory loss. PMHx: Reviewed and agree as charted by RN. PSHx: Reviewed and agree as charted by RN. SOCHx: Reviewed and agree as charted by RN. FHX: No significant familial comorbid conditions directly related to patient complaint Current Medications: Reviewed and agree with the patient medications as charted by the RN. Allergies: Reviewed and agree with the listed allergies as charted by the RN Physical Exam: Vitals: Reviewed in chart as documented by RN. General: Alert and in NAD. Head: Normocephalic; atraumatic Eyes: PERRLA, Conjunctivae clear sclerae non-icteric bilat ENT: no soft palate swelling or uvular deviation Neck: trachea midline, no unilateral swelling/tenderness/lymphadenopathy CV: RRR, no M/R/G; symmetric distal pulses Resp: respirations even and unlabored, CTA bilat. GI: abd soft and nondistended. NTTP. normal BS. no masses/HSM. no CVAT bilat MSK: RUE- thumb-focal healing wound to distal tip of thumb. no surround erythema, swelling. cap refill < 2 sec. from of mcp, IP. no pain along flexor tendon. no pain w/ passive extension. sensation intact distally. radial pulse 2+ Skin: warm, moist, good turgor. no rash/lesions Neuro: Alert and oriented X 4. following CN 2-12 intact. no unilateral w eakness/numbness Psych: No SI/HI or AH/VH. Medical Decision-Making: Medical Decision-making/Differential Diagnosis: Consider various etiologies including but not limited to skin/soft tissue stru cture infection, cellulitis, erysipelas, sepsis syndromes, focal abscess, felon, ect no sign of felon or flexor tendonitis. no drainable abscess. healing focal wound. hx of mrsa. will switch to keflex/bactrim. pt wants bactroban as well. return factors discussed. recheck by pcp i day - Related Data Allergies/Adverse Reactions: Beef Containing Products Allergy (Verified 11/29/20 08:43) Home Medications: lisinopril Past Medical History - Social History Smoking Status: Current Every Day Smoker Chew tobacco use (# tins/day): No Frequency of alcohol use: Occasional Drug Abuse: None Family History: Reviewed & Not Pertinent - Past Medical History Cardiac Medical History: Reports: Hx Hypertension Renal/ Medical History: Denies: Hx Peritoneal Dialysis GI Medical History: Reports: Hx Hepatitis Skin Medical History: Reports Hx MRSA Infectious Medical History: Reports: Hx Hepatitis, Hx MRSA - Patient has had multiple surgeries did to the MRSA Past Surgical History: Reports: Hx Orthopedic Surgery - rt shoulder back and neck, Other - fournieres gangrene, wound surgery - Immunizations Hx Diphtheria, Pertussis, Tetanus Vaccination: Yes Physical Exam - Vital signs Vitals: Temp Pulse Resp BP Pulse Ox 98.0 F 74 18 168/96 H 97 11/29/20 08:31 11/29/20 08:31 11/29/20 08:31 11/29/20 08:31 11/29/20 08:31 Course - Vital Signs Vital signs: Temp Pulse Resp BP Pulse Ox 98.0 F 74 18 168/96 H 97 11/29/20 08:31 11/29/20 08:31 11/29/20 08:31 11/29/20 08:31 11/29/20 08:31 - Laboratory Results Critical Laboratory Results Reviewed: No Critical Results - Radiology Results Critical Radiology Results Reviewed: No Critical Results Discharge - Discharge Clinical Impression: Infected abrasion of right thumb Qualifiers: Encounter type: initial encounter Qualified Code(s): S60.311A - Abrasion of right thumb, initial encounter; L08.9 - Local infection of the skin and subcutaneous tissue, unspecified Condition: Stable Disposition: HOME, SELF-CARE Additional Instructions: clean twice a day. do warm soaks. keep wound clean and dry. avoid work gloves until healed. stop clindamycin. return to the ER if your condition worsens. follow up with your primary doctor in 3-5 days for recheck. Prescriptions: Sulfamethoxazole/Trimethoprim [Bactrim Ds Tablet] 1 each PO BID #20 tablet Mupirocin [Bactroban 2% Ointment 22 gm] 1 applic TP TID #1 tube Cephalexin Monohydrate [Keflex 500 mg Capsule] 500 mg PO Q6H 5 Days #40 capsule
== END 2020-11-29 10:52 | disposition home or self-care (01) ==
LOC: ER 08:26
DX: S60.311A Abrasion of right thumb, initial encounter (principal); L08.9 Local infection of the skin and subcutaneous tissue, unspecified; X58.XXXA Exposure to other specified factors, initial encounter; I10 Essential (primary) hypertension; Z79.899 Other long term (current) drug therapy; Z91.018 Allergy to other foods; Z86.73 Personal history of transient ischemic attack (TIA), and cerebral infarction without residual deficits; F17.200 Nicotine dependence, unspecified, uncomplicated
CPT/HCPCS: 99283